=== PATIENT | male | born 1960 | race Asian ===

== ENCOUNTER 2021-03-31 05:00 | Day surgery (SDC) | payer OTHER ==
[~2021-03-31] VITALS: Ht 172.7 cm; Wt 99.8 kg
[2021-03-31 06:46] LABS: BILIRUBIN,URINE NEGATIVE (NEGATIVE); BLOOD, URINE 3+ (NEGATIVE); CLARITY/URINE CLEAR (CLEAR); COLOR,URINE YELLOW (YELLOW); GLUCOSE,URINE NEGATIVE (NEGATIVE); KETONES,URINE NEGATIVE (NEGATIVE); LEUKOCYTE ESTERASE ,URINE NEGATIVE (NEGATIVE); NITRITE, URINE NEGATIVE (NEGATIVE); PH,URINE 5.5 (5.0-8.0); PROTEIN URINE NEGATIVE (NEGATIVE); UROBILINOGEN,URINE 0.2 (0.2-1.0)
[2021-03-31 06:52] LABS: BASOPHILS # (AUTO) 0.1 K/uL (0.0-0.2); BASOPHILS % (AUTO) 1.1 % (0.0-2.0); EOSINOPHILS # (AUTO) 0.3 K/uL (0.0-0.4); HEMATOCRIT 48.5 % (36-54); HEMOGLOBIN 16.1 g/dL (14.0-18.0); LYMPHOCYTES # (AUTO) 2.2 K/uL (1.0-5.5); LYMPHOCYTES % (AUTO) 37.3 % (20.5-51.5); MEAN CORPUSCULAR HEMOGLOBIN 31 pg (27-31); MEAN CORPUSCULAR HGB CONC 33 % (32-36); MEAN CORPUSCULAR VOLUME 92 fL (79.0-98.0); MONOCYTES # (AUTO) 0.5 K/uL (0.0-1.0); MONOCYTES % (AUTO) 8.1 % (1.7-9.3); NEUTROPHILS # (AUTO) 2.8 K/uL (1.8-7.7); NEUTROPHILS % (AUTO) 47.5 % (40.0-70.0); PLATELET COUNT (AUTO) 181 K/uL (130-430); RED CELL DISTRIBUTION WIDTH 13.3 % (9.0-15.0); WHITE BLOOD COUNT (AUTO) 5.9 K/uL (4.8-10.8)
[2021-03-31 06:57] LABS: CALCIUM 8.8 mg/dL (8.4-11.0); CREATININE 1.01 mg/dL (0.55-1.30); POTASSIUM 4.2 mmol/L (3.5-5.1)
[2021-03-31 06:58] LABS: BACTERIA,URINE RARE /HPF (None Seen); MUCUS,URINE 1+ /LPF (None Seen); WBC,URINE 0-3 /HPF (0-3)
[2021-03-31 07:03] LABS: ALBUMIN 3.5 g/dL (3.4-4.8); TOTAL BILIRUBIN 0.4 mg/dL (0.0-1.0)
[2021-03-31] MEDS ORDERED: LR 1,000 ML IV.SOLN IV ONE (07:40)
[2021-03-31] MEDS ORDERED: DEXAMETHASONE SOD PHOSPHATE 4 MG/ML VIAL IVP ONE (07:40)
[2021-03-31] MEDS ORDERED: PROPOFOL 200MG/ 20ML VIAL (DIPRIVAN) IV ONE (07:40)
[2021-03-31] MEDS ORDERED: MIDAZOLAM HCL/PF 2 MG/2 ML SYRINGE IVP ONE (07:40)
[2021-03-31] MEDS ORDERED: PHENYLEPHRINE HCL 10 MG/ML VIAL (NEOSYNEPHRINE) IV ONE (07:40)
[2021-03-31] MEDS ORDERED: NS IRRIG SOLN 1000 ML IR ONE (07:40)
[2021-03-31] MEDS ORDERED: cefTRIAXone 1 GM VIAL IM ONE (07:40)
[2021-03-31] MEDS ORDERED: SUCCINYLCHOLINE CHLORIDE 20 MG/ML(QUELICIN) IVP ONE (07:40)
[2021-03-31] MEDS ORDERED: NS IRRIG SOLN 5000 ML IR ONE (07:40)
[2021-03-31] MEDS ORDERED: fentaNYL CITRATE 250 MCG/5 ML AMP IV ONE (07:40)
[2021-03-31] MEDS ORDERED: SEVOFLURANE 15 MIN GAS INH ONE (07:40)
[2021-03-31] MEDS ORDERED: KETOROLAC TROMETHAMINE 30 MG VIAL IVP PRN (08:45)
[2021-03-31] MEDS ORDERED: HYDROmorphone 1 MG/ML INJ. CARTRIDGE IVP PRN ×2 (08:45)
[2021-03-31] MEDS ORDERED: ONDANSETRON HCL 4 MG/2 ML VIAL IVP PRN (08:45)
[2021-03-31] MEDS ORDERED: METOCLOPRAMIDE HCL 10 MG/2 ML VIAL IVP PRN (08:45)
[2021-03-31 13:56] VITALS: BP_SYST 143
== END 2021-03-31 11:20 | disposition home or self-care (01) ==
LOC: SDS 05:00 → SMU 05:00 → SDS 11:20
PROVIDERS: ATTEND Urology
DX: N13.2 Hydronephrosis with renal and ureteral calculous obstruction (principal); Z79.899 Other long term (current) drug therapy; Z20.822 Contact with and (suspected) exposure to COVID-19
CPT/HCPCS: 36415 ×2; 52356; 71046; 80053; 81000; 85025; 87426; 88300; 93005; C1769; C1894; C2625; J0330; J0696; J1100; J2370; J2704; J3010; J3465; J7120; Q9967; 76000